=== PATIENT | male | born 1995 | race Caucasian/White ===

== ENCOUNTER 2023-05-22 08:44 | Emergency (ER) | payer OTHER ==
[~2023-05-22] VITALS: Ht 175.3 cm; Wt 87.3 kg
[~2023-05-22 08:44] MED LIST: NITR0.4T52 SL
[2023-05-22 09:27] LABS: BASOPHILS % (AUTO) 0.4 % (0.0-2.0); EOSINOPHILS % (AUTO) 1.1 % (1.0-6.0); HEMATOCRIT 42.3 % (41-53); HEMOGLOBIN 14.2 g/dL (13.5-17.5); LYMPHOCYTES # (AUTO) 2.5 K/uL (1.0-4.8); LYMPHOCYTES % (AUTO) 31.3 % (22.0-44.0); MEAN CORPUSCULAR HEMOGLOBIN 30.2 pg (26.0-34.0); MEAN CORPUSCULAR HGB CONC 33.6 G/dL (31.0-37.0); MEAN CORPUSCULAR VOLUME 90 fL (80-100); MONOCYTES # (AUTO) 0.6 K/uL (0.1-1.0); MONOCYTES % (AUTO) 7.3 % (2.0-9.0); NEUTROPHILS # (AUTO) 4.8 K/uL (1.8-7.7); NEUTROPHILS % (AUTO) 59.9 % (40.0-70.0); PLATELET COUNT (AUTO) 264 K/uL (150-450); RED BLOOD CELL COUNT(AUTO) 4.71 MIL/uL (4.50-5.90); RED CELL DISTRIBUTION WIDTH 13.1 % (11.5-14.5)
[2023-05-22 09:36] LABS: ANION GAP 10 mmol/L (8-16); CALCIUM, TOTAL 9.2 mg/dL (8.8-10.5); CARBON DIOXIDE 27 mmol/L (22-29); CHLORIDE 98 mmol/L (98-107); CREATININE 0.89 mg/dL (0.60-1.30); GLOMERULAR FILTR. RATE CALC > 60 mL/min (>60); GLUCOSE,RANDOM 119 mg/dL (70-110); SODIUM SERUM 134 mmol/L (136-145); UREA NITROGEN, BLOOD 20 mg/dL (7-18)
[2023-05-22 09:42] LABS: ALANINE AMINOTRANSFERASE 14 U/L (12-78); ALBUMIN 4.2 g/dL (3.4-5.0); ALKALINE PHOSPHATASE 67 U/L (46-116); ASPARTATE AMINOTRANSFERASE 12 U/L (15-37); BILIRUBIN,TOTAL 0.5 mg/dL (0.1-1.0); TOTAL PROTEIN, SERUM 7.7 g/dL (6.4-8.2)
[2023-05-22 10:22] LABS: APPEARANCE,URINE CLEAR (CLEAR); BILIRUBIN,URINE NEGATIVE (NEGATIVE); COLOR,URINE LIGHT YELLOW (YELLOW); GLUCOSE, URINE (UA) NEGATIVE (NEGATIVE); KETONES,URINE TRACE mg/dL (NEGATIVE); LEUKOCYTE ESTERASE ,URINE NEGATIVE (NEGATIVE); NITRATE,URINE NEGATIVE (NEGATIVE); OCCULT BLOOD,URINE MODERATE (NEGATIVE); PROTEIN,URINE NEGATIVE (NEGATIVE); SPECIFIC GRAVITIY, URINE 1.024 (1.003-1.030); UROBILINOGEN,URINE <=1.0 mg/dL (<=1.0)
[2023-05-22] MEDS ORDERED: SODIUM CHLORIDE 0.9% 1,000 ML IV ONE (10:30)
[2023-05-22] MEDS ORDERED: KETOROLAC TROMETHAMINE 30 MG/ML VIAL IVP ONE (10:30)
[2023-05-22 10:45] LABS: BACTERIA,URINE None Seen /HPF (None Seen); SQUAMOUS EPITHELIAL CELL,UR None Seen /LPF (None Seen); WBC,URINE None Seen /HPF (0-5)
[2023-05-22 11:15] VITALS: TEMP 98.2
[2023-05-22 12:04] VITALS: BP 128/62; PULSE 74; RESP 16
== END 2023-05-22 13:15 | disposition home or self-care (01) ==
LOC: EMS 08:49
DX: N20.9 Urinary calculus, unspecified (principal)
CPT/HCPCS: 99284; 96374; 96361; 80053; 81001; 85025; 36415; 93005; J1885; J7030

== ENCOUNTER 2023-06-06 09:47 | Emergency (ER) | payer OTHER ==
[~2023-06-06] VITALS: Ht 175.3 cm; Wt 85.5 kg
[2023-06-06 09:51] VITALS: TEMP 98.2
[2023-06-06] MEDS ORDERED: IBUP-1493 PO (09:55)
[2023-06-06] MEDS ORDERED: EMTR1TAB23 PO (09:55)
[2023-06-06 11:45] VITALS: BP 135/73; PULSE 90; RESP 18
[2023-06-06] MEDS ORDERED: LIDOCAINE 1% 10 ML VIAL ID ONE (12:15)
[2023-06-06] MEDS ORDERED: BACITRACIN 0.9 GM PACKET OINTMENT TP ONE (12:45)
== END 2023-06-06 13:01 | disposition home or self-care (01) ==
LOC: EMS 09:49
DX: L05.91 Pilonidal cyst without abscess (principal)
CPT/HCPCS: 10080; 99284; J3490

== ENCOUNTER 2023-06-09 09:31 | Emergency (ER) | payer OTHER ==
[~2023-06-09] VITALS: Ht 175.3 cm; Wt 77.3 kg
[~2023-06-09 09:31] MED LIST changes: +EMTR1TAB23 PO; +IBUP-1493 PO; -NITR0.4T52 SL
[2023-06-09 09:57] VITALS: TEMP 98.2
[2023-06-09] MEDS ORDERED: LIDOCAINE 1%/EPI 1:200,000/PF 30 ML VIAL PERC ONE (12:00)
[2023-06-09] MEDS ORDERED: POVIDONE-IODINE 10% 15 ML SOLUTION UD TP ONE (12:00)
[2023-06-09] MEDS ORDERED: DOXY-354 PO (12:45)
[2023-06-09 12:58] VITALS: BP 132/82; PULSE 72; RESP 18
== END 2023-06-09 13:03 | disposition home or self-care (01) ==
LOC: EMS 09:31
DX: L05.01 Pilonidal cyst with abscess (principal)
CPT/HCPCS: 10080; 99283; J3490; 99282

== ENCOUNTER 2023-06-12 02:39 | Emergency (ER) | payer OTHER ==
[~2023-06-12] VITALS: Ht 175.3 cm; Wt 85.5 kg
[~2023-06-12 02:39] MED LIST changes: +DOXY-354 PO; -EMTR1TAB23 PO; -IBUP-1493 PO
[2023-06-12 02:43] VITALS: BP 125/66; PULSE 86; RESP 16; TEMP 98
== END 2023-06-12 03:25 | disposition home or self-care (01) ==
LOC: EMS 02:40
DX: L05.01 Pilonidal cyst with abscess (principal); Z48.00 Encounter for change or removal of nonsurgical wound dressing
CPT/HCPCS: 99282; Z7502

== ENCOUNTER 2024-02-02 01:40 | Emergency (ER) | payer OTHER ==
[~2024-02-02] VITALS: Ht 182.9 cm; Wt 80.9 kg
[2024-02-02 04:09] VITALS: BP 119/78; PULSE 68; RESP 15; TEMP 97.9
== END 2024-02-02 05:01 | disposition home or self-care (01) ==
LOC: EMS 01:40
DX: S63.004A Unspecified dislocation of right wrist and hand, initial encounter (principal); X58.XXXA Exposure to other specified factors, initial encounter; Y93.66 Activity, soccer; Y92.89 Other specified places as the place of occurrence of the external cause; Y99.8 Other external cause status
CPT/HCPCS: 99283

== ENCOUNTER 2024-03-02 21:45 | Emergency (ER) | payer OTHER ==
[~2024-03-02] VITALS: Ht 175.3 cm; Wt 8.0 kg
[2024-03-02 21:48] VITALS: TEMP 97.7
[2024-03-02] MEDS ORDERED: IBUP-1492 PO (22:32)
[2024-03-02] MEDS: IBUPROFEN 600 MG TABLET PO ONE (22:35)
[2024-03-02 22:47] VITALS: BP 126/70; PULSE 60; RESP 18
== END 2024-03-02 23:10 | disposition home or self-care (01) ==
LOC: EMS 21:45
DX: S63.616A Unspecified sprain of right little finger, initial encounter (principal); W21.02XA Struck by soccer ball, initial encounter; Y93.66 Activity, soccer; Y92.89 Other specified places as the place of occurrence of the external cause; Y99.8 Other external cause status
CPT/HCPCS: 99283

== ENCOUNTER 2024-03-22 23:42 | Emergency (ER) | payer OTHER ==
[~2024-03-22] VITALS: Ht 182.9 cm; Wt 79.5 kg
[~2024-03-22 23:42] MED LIST changes: +IBUP-1492 PO
[2024-03-22 23:48] VITALS: TEMP 98.1
[2024-03-23] MEDS: IBUPROFEN 600 MG TABLET PO ONE (00:11)
[2024-03-23 01:15] VITALS: BP 132/72; PULSE 68; RESP 18
== END 2024-03-23 01:31 | disposition home or self-care (01) ==
LOC: EMS 23:43
DX: S83.91XA Sprain of unspecified site of right knee, initial encounter (principal); I25.10 Atherosclerotic heart disease of native coronary artery without angina pectoris; Z87.442 Personal history of urinary calculi; X58.XXXA Exposure to other specified factors, initial encounter; Y93.66 Activity, soccer; Y92.89 Other specified places as the place of occurrence of the external cause; Y99.8 Other external cause status
CPT/HCPCS: 99283

== ENCOUNTER 2024-07-19 00:40 | Emergency (ER) | payer OTHER ==
[~2024-07-19] VITALS: Ht 175.3 cm; Wt 79.1 kg
[2024-07-19 02:12] VITALS: BP 124/69; PULSE 69; RESP 18; TEMP 97.3; O2SAT 96
[2024-07-19] MEDS ORDERED: BACTDSB PO (02:18)
== END 2024-07-19 02:30 | disposition home or self-care (01) ==
LOC: EMS 00:41
DX: H00.014 Hordeolum externum left upper eyelid (principal)
CPT/HCPCS: 99283; Z7502